=== PATIENT | female | born 1950 | race Caucasian/White ===

== ENCOUNTER 2024-10-11 14:57 | Inpatient (IN) | payer MEDICARE, SELFPAY ==
--- NOTE | ~2024-10-11 | CT_ITS ---
EXAMINATION: CT HEAD WITHOUT IV CONTRAST HISTORY: new onset mood dx paranoia. TECHNIQUE: Unenhanced helical CT of the head was performed per standard departmental protocol. Coronal and sagittal reformats of the head were also evaluated. One or more of the following techniques was used for dose reduction: Automated exposure control, adjustment of the mA and/or kV according to patient size, use of iterative reconstruction technique. DLP: 778 mGy-cm COMPARISON: There are no prior studies available for comparison. FINDINGS: BRAIN: There is diffuse prominence of the ventricular system and cortical sulci, consistent with atrophy. Periventricular and subcortical white matter hypodensities are noted which are nonspecific, but often seen in the setting of small vessel ischemic disease. There is no mass effect or midline shift. No intra- or extra-axial fluid collections are identified. SINUSES: The visualized paranasal sinuses are clear. The mastoid air cells and middle ear cavities are well pneumatized. ORBITS: The visualized orbits are unremarkable. BONES/SOFT TISSUES: The extracranial soft tissues are unremarkable. The calvarium is intact. No suspicious lytic or sclerotic lesions. CT/CT head/brain wo IV con IMPRESSION: No acute intracranial abnormality. Electronically signed by: Marvin Enrique MD 10/13/2024 08:57 AM EDT
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
--- NOTE | 2024-10-11 19:52 | PC.NURSE ---
Patient said she lost 50 lbs while on Ozempic.
[2024-10-11 20:00] VITALS: BP 180/87; PULSE 55; RESP 16; TEMP 36.5; O2SAT 99
[2024-10-12 08:18] LABS: Hemoglobin A1C 114.3439 umol/L; Total Hemoglobin (HGBA1C) 3583.2681 umol/L
[2024-10-12 08:43] VITALS: BP 142/60; PULSE 86; RESP 18; TEMP 36.5; O2SAT 98
[2024-10-12 08:54] LABS: Folate 16.2 ng/mL (> or = 4.0); Vitamin B12 1688 pg/mL (200-900)
[2024-10-12] MEDS: Tiotropium Bromide 2.5 mcg 1 PUFF/2.5 MCG MIST.INHAL 2 PUFF INHALE (09:08)
[2024-10-12] MEDS: Metoprolol Succinate ER 12.5 MG HALFTAB.ER.24H PO (09:09)
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
[2024-10-12 10:02] LABS: Alanine Aminotransferase 17 U/L (0-31); Albumin Level 4.3 g/dL (3.5-5.0); Alkaline Phosphatase 55 U/L (39-117); Anion Gap 12 (12-20); Aspartate Amino Transferase 25 U/L (5-31); Blood Urea Nitrogen 23 mg/dL (9-16); Calcium 9.6 mg/dL (8.4-10.2); Carbon Dioxide 24 mmol/L (22-29); Chloride 103 mmol/L (96-108); Cholesterol 159 mg/dL (<200); Estimated Glomerular Filt Rate 40; HDL Cholesterol 29 mg/dL (>40); Magnesium 2.1 mg/dL (1.6-2.6); Potassium 3.8 mmol/L (3.3-5.1); Sodium 135 mmol/L (135-145); Total Protein 7.8 g/dL (6.5-8.0); Triglycerides 118 mg/dL (<150)
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
[2024-10-12 10:21] LABS: Thyroid Stimulating Hormone 1.28 uIU/mL (0.32-4.0)
[2024-10-12 11:34] VITALS: BP 128/76; PULSE 75; RESP 18; O2SAT 98
[2024-10-12 18:47] LABS: Appearance Urine Clear; Glucose Urine UA Negative (Negative); PH 6.0 (5.0-9.0); Specific Gravity - Urine 1.020 (1.005-1.025); UMIC TRIGGER UACC YES
[2024-10-12 19:14] LABS: UACC Culture Trigger YES
[2024-10-12 20:00] VITALS: BP 170/90; PULSE 67; RESP 17; TEMP 36.5; O2SAT 94
[2024-10-12] MEDS: Latanoprost 0.005 % Ophth Sol 2.5 ML DROPS 1 DROP EYE-LEFT (21:25)
[2024-10-12] MEDS: Dorzolamide/Timolo 2.23%/0.68% 10 ML DRBTL 1 DROP EYE-LEFT (21:25)
[2024-10-13 08:00] VITALS: BP 136/95; PULSE 71; RESP 18; TEMP 35.9; O2SAT 98
[2024-10-13 08:23] VITALS: BMI 39.7
[2024-10-13 08:25] LABS: Alanine Aminotransferase 14 U/L (0-31); Albumin Level 4.4 g/dL (3.5-5.0); Alkaline Phosphatase 56 U/L (39-117); Aspartate Amino Transferase 24 U/L (5-31); Total Protein 7.8 g/dL (6.5-8.0)
[2024-10-13] MEDS: Tiotropium Bromide 2.5 mcg 1 PUFF/2.5 MCG MIST.INHAL 2 PUFF INHALE (08:31)
[2024-10-13] MEDS: Metoprolol Succinate ER 12.5 MG HALFTAB.ER.24H PO (08:32)
[2024-10-13 08:52] LABS: Folate 12.8 ng/mL (> or = 4.0); Vitamin B12 1930 pg/mL (200-900)
--- NOTE | 2024-10-13 13:13 | HO.PSYCHPN ---
Subjective Subjective Date of Service: 10/13/24 Reason For Visit: Paranoid delusions Subjective Notes: Section 12B Healthcare Proxy: No Interim History: pt states she is feeling better likes how she feels on depakote some concerns re her phone and concerns that bldg trying to get her evicted Medication Compliance: Yes Mental Status Exam Mental Status Exam Narrative: Patient casually dressed cooperative somewhat expansive in manner. Mood somewhat expansive affect appropriate to mood not aggressive or hostile threatening patient described multiple paranoid concerns some breaking into the apartment taking things lying in the CAD in her out of apartment people looking through her windows tapping her phone and making it so that you can make calls on it. Limited insight into how this perhaps could be part of some degree of irrational thinking she she also did hint at marijuana use but was very concerned regarding talking about this given she states it is not allowed concerned they may try to evict her for marijuana use. impulse control intact no si or hi Diagnostics Vital Signs (24Hr): Vital Signs - 24 hr 10/12/24 20:00 10/13/24 08:00 Temperature 97.7 F 96.7 F L Pulse Rate 67 71 Respiratory Rate 17 18 Blood Pressure 170/90 H 136/95 H Pulse Oximetry 94 98 Oxygen Delivery Method Room Air Room Air BMI result Body Mass Index 39.7 Labs 10/12/24 08:33 Labs: Laboratory Results - last 48 hr 10/12/24 10/12/24 10/12/24 07:57 08:33 18:35 Sodium 135 Potassium 3.8 Chloride 103 Carbon Dioxide 24 Anion Gap 12 BUN 23 H Creatinine 1.29 Estim Creat Clear Calc TNP Estimated GFR 40 Random Glucose 146 H Estimat Average Glucose 100 Hemoglobin A1c % 5.1 Calcium 9.6 Magnesium 2.1 Total Bilirubin 0.6 Direct Bilirubin AST 25 ALT 17 Alkaline Phosphatase 55 Total Protein 7.8 Albumin 4.3 Triglycerides 118 Cholesterol 159 LDL Cholesterol, Calc 107 H HDL Cholesterol 29 L Vitamin B12 1688 H Folate 16.2 TSH 1.28 Urine Color Yellow Urine Appearance Clear Urine pH 6.0 Ur Specific [place] 1.020 Urine Protein Trace Urine Glucose (UA) Negative Urine Ketones Trace Urine Blood Negative Urine Nitrite Negative Ur Leukocyte Esterase Trace H Urine RBC 0-2 Urine WBC 6-10 H Ur Squamous Epith Cells 11-20 Urine Bacteria 1+ Hyaline Casts 6-10 Valproic Acid 10/13/24 07:28 Sodium Potassium Chloride Carbon Dioxide Anion Gap BUN Creatinine Estim Creat Clear Calc Estimated GFR Random Glucose Estimat Average Glucose Hemoglobin A1c % Calcium Magnesium Total Bilirubin 0.7 Direct Bilirubin 0.2 AST 24 ALT 14 Alkaline Phosphatase 56 Total Protein 7.8 Albumin 4.4 Triglycerides Cholesterol LDL Cholesterol, Calc HDL Cholesterol Vitamin B12 1930 H Folate 12.8 TSH 1.38 Urine Color Urine Appearance Urine pH Ur Specific [place] Urine Protein Urine Glucose (UA) Urine Ketones Urine Blood Urine Nitrite Ur Leukocyte Esterase Urine RBC Urine WBC Ur Squamous Epith Cells Urine Bacteria Hyaline Casts Valproic Acid 27.9 L Imaging Radiology Impressions: ITS Impressions Head CT 10/12/24 20:08 IMPRESSION: No acute intracranial abnormality. Electronically signed by: Marvin Enrique MD 10/13/2024 08:57 AM EDT RP Medications Medications Current Medications Acetaminophen (Acetaminophen 325 Mg Tablet) 650 mg PO Q6H PRN PRN Reason: Headache/Pain, Scale 1-10 Al Hydroxide/Mg Hydroxide (Magnesium Hydrox/Alum Hydrox 30 Ml Oral.Susp) 30 ml PO Q6H PRN PRN Reason: Heartburn/Nausea Albuterol Sulfate (Albuterol Sulfate 90 Mcg 8 Gm Inhaler) 2 puff INHALE Q6H PRN PRN Reason: Shortness of Breath Amlodipine Besylate (Amlodipine Besylate 2.5 Mg Tablet) 2.5 mg PO DAILY [facility] Last Admin: 10/13/24 08:32 Dose: 2.5 mg Divalproex Sodium (Divalproex Sodium 500 Mg Tablet.Dr) 500 mg PO DAILY [facility] Last Admin: 10/13/24 08:32 Dose: 500 mg Dorzolamide/Timolol (Dorzolamide/Timolo 2.23%/0.68% 10 Ml Drbtl) 1 drop EYE-LEFT BEDTIME [facility] Last Admin: 10/12/24 21:25 Dose: 1 drop Latanoprost (Latanoprost 0.005 % Ophth Tori 2.5 Ml Drops) 1 drop EYE-LEFT BEDTIME [facility] Last Admin: 10/12/24 21:25 Dose: 1 drop Lorazepam (Lorazepam 0.5 Mg Tablet) 0.5 mg PO BID PRN PRN Reason: Anxiety Last Admin: 10/13/24 03:06 Dose: 0.5 mg Losartan Potassium (Losartan Potassium 50 Mg Tablet) 100 mg PO DAILY [facility] Last Admin: 10/13/24 08:32 Dose: 100 mg Magnesium Hydroxide (Milk Of Magnesia 30 Ml Oral.Susp) 30 ml PO DAILY PRN PRN Reason: Constipation Melatonin (Melatonin 3 Mg Tablet) 6 mg PO BEDTIME [facility] Last Admin: 10/12/24 21:23 Dose: 6 mg Metoprolol Succinate (Metoprolol Succinate Er 12.5 Mg Halftab.Er.24h) 12.5 mg PO DAILY [facility] Last Admin: 10/13/24 08:32 Dose: 12.5 mg Polyethylene Glycol (Polyethylene Glycol 3350 17 Gm Powd.Pack) 17 gm PO DAILY PRN PRN Reason: Constipation Risperidone (Risperidone 0.5 Mg Tablet) 0.5 mg PO BID PRN PRN Reason: Psychosis Tiotropium [place] (Tiotropium [place] 2.5 Mcg 1 Puff/2.5 Mcg Mist.Inhal) 2 puff INHALE RDAILY [facility] Last Admin: 10/13/24 08:31 Dose: 2 puff Trazodone HCl (Trazodone Hcl 50 Mg Tablet) 50 mg PO BEDTIME [facility] Last Admin: 10/12/24 21:23 Dose: 50 mg Trazodone HCl (Trazodone Hcl 50 Mg Tablet) 50 mg PO BEDTIME PRN PRN Reason: insomnia Last Admin: 10/12/24 22:07 Dose: 50 mg Allergies Allergies Allergy/AdvReac Type Severity Reaction Status Date / Time atorvastatin Allergy Severe Unknown Verified 10/11/24 19:17 ezetimibe Allergy Severe Joint Pain Verified 10/11/24 19:20 fenofibrate Allergy Severe Unknown Verified 10/11/24 19:22 meperidine Allergy Severe Unknown Verified 10/11/24 19:23 mite-Dermatophagoides Allergy Severe Unknown Verified 10/11/24 19:19 farinae, matthew (dust mite - [place]) [id number] Reductase Allergy Severe Joint Pain Verified 10/11/24 19:26 Inhibitor lisinopril Allergy Mild Unknown Verified 10/11/24 19:24 nickel Allergy Mild Unknown Verified 10/11/24 19:25 Assessment & Plan Assessment & Plan (1) Bipolar disorder with psychotic features: Status: Acute Code(s): F31.9 - Bipolar disorder, unspecified (2) HTN (hypertension): Status: Acute Code(s): I10 - Essential (primary) hypertension Plan Patient admitted with what appears to be jade with paranoid patient states she has been somewhat euphoric since significant weight loss over the past year and his epic I have my life back. Would check a urine CASH which I do not see from the other hospital will check a head CT scan given late onset paranoia patient cognition appears intact patient may have had a cycling mood disorder untreated x yrs. ? marijuana induced paranoia cont depakote ck labs tsh b12 ffor PI folate esr crp no evidence delerium encephalitis risp 05 mg prn paranoia cont medical med from outpt Bipolar dx with psychotic features initial impression,r/o psychoactive sub induced or other cause for paranoid concerns monitor response to depakote 10/13/24 Pt offered risp for PI has limited insight but less agitated feeling better on depakote she states helpful for anxiety Patient educated on: diagnosis and medication risk/benefits Informed Consent: further education needed Reason for continued inpatient stay Substantial Risk for: inability to function and rapid decompensation Time Spent With Patient Time: Total time managing care of this patient today ____ minutes.
[2024-10-13 18:02] LABS: Cannabinoid Screen Urine POSITIVE (Not Detect)
[2024-10-13 20:00] VITALS: BP 151/85; PULSE 54; RESP 16; TEMP 36.9; O2SAT 98
[2024-10-13] MEDS: Latanoprost 0.005 % Ophth Sol 2.5 ML DROPS 1 DROP EYE-LEFT (20:15)
[2024-10-13] MEDS: Dorzolamide/Timolo 2.23%/0.68% 10 ML DRBTL 1 DROP EYE-LEFT (20:16)
[2024-10-14 08:00] VITALS: BP 152/91; PULSE 64; RESP 16; TEMP 2.4; TEMP 36.3; O2SAT 97
[2024-10-14] MEDS: Tiotropium Bromide 2.5 mcg 1 PUFF/2.5 MCG MIST.INHAL 2 PUFF INHALE (08:19)
[2024-10-14] MEDS: Metoprolol Succinate ER 12.5 MG HALFTAB.ER.24H PO (08:20)
[2024-10-14 08:21] VITALS: BP 152/91
[2024-10-14 08:22] VITALS: BP 152/91
--- NOTE | 2024-10-14 10:01 | ECG_ITS ---
Test Reason : cp Blood Pressure : */* mmHG Vent. Rate : 53 BPM Atrial Rate : 53 BPM P-R Int : 234 ms QRS Dur : 162 ms QT Int : 480 ms P-R-T Axes : 51 -37 -24 degrees QTcB Int : 450 ms Poor data quality, interpretation may be adversely affected Sinus bradycardia with 1st degree A-V block Left axis deviation Right bundle branch block Minimal voltage criteria for LVH, may be normal variant ( R in aVL ) Abnormal ECG No previous ECGs available Referred By: Cy Robles Electronically Signed By:
[2024-10-14] MEDS: Magnesium Hydrox/Alum Hydrox 30 ML ORAL.SUSP PO (11:10)
--- NOTE | 2024-10-14 12:18 | PM.EVENT ---
Event Note Date of Service: 10/14/24 Event Note: Blood pressures reviewed, they are elevated. There noted to be elevated ranging from 140s to 180s over 60s to 90s. We will increase amlodipine to 5 mg at HS. Time Spent With Patient Time: Total time managing care of this patient today ____ minutes.
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
== END 2024-10-14 13:03 | disposition home or self-care (01) | DRG 885 ==
PROVIDERS: Social Worker; Admitting Provider Psychiatry & Neurology Psychiatry; Visit Provider Psychiatry & Neurology Psychiatry
DX: F31.9 Bipolar disorder, unspecified (principal); I50.32 Chronic diastolic (congestive) heart failure; I42.2 Other hypertrophic cardiomyopathy; H40.9 Unspecified glaucoma; J44.9 Chronic obstructive pulmonary disease, unspecified; G47.33 Obstructive sleep apnea (adult) (pediatric); I25.10 Atherosclerotic heart disease of native coronary artery without angina pectoris; I11.0 Hypertensive heart disease with heart failure; Z87.891 Personal history of nicotine dependence; Z79.899 Other long term (current) drug therapy
CPT/HCPCS: 36415; 70450; 80053; 80061; 80076; 80164; 80307; 81001; 82607; 82746; 83036; 83735; 84443; 87086; 93005

== ENCOUNTER 2024-10-11 14:57 | Outpatient (BNV) | payer MEDICARE, SELFPAY | END 2024-10-12 20:08 | PROVIDERS: Admitting Provider Psychiatry & Neurology Psychiatry; Visit Provider Radiology Diagnostic Radiology | DX: F60.0 Paranoid personality disorder (principal) | CPT/HCPCS: 70450 ==

== ENCOUNTER → 2024-10-11 14:57 | Outpatient (BNV) | payer MEDICARE, SELFPAY | PROVIDERS: Admitting Provider Psychiatry & Neurology Psychiatry; Visit Provider Psychiatry & Neurology Psychiatry | DX: F31.9 Bipolar disorder, unspecified (principal); I10 Essential (primary) hypertension | CPT/HCPCS: 90792 ==

== ENCOUNTER → 2024-10-11 14:57 | Outpatient (BNV) | payer MEDICARE, SELFPAY | PROVIDERS: Admitting Provider Psychiatry & Neurology Psychiatry; Visit Provider Nurse Practitioner Family | DX: I10 Essential (primary) hypertension (principal) | CPT/HCPCS: 99221; 99499 ==